=== PATIENT | female | born 1950 | race Caucasian/White ===

== ENCOUNTER 2018-05-08 13:58 | Emergency (ER) | payer MEDICARE, MEDICAID, SELFPAY ==
[2018-05-08 14:32] VITALS: BP 145/85; PULSE 90; RESP 16; TEMP 37; O2SAT 98; BMI 34.9
--- NOTE | 2018-05-08 14:55 | PC.NURSE ---
Refusing lab draw at this time
--- NOTE | 2018-05-08 15:35 | ED.NAVMDI ---
HPI - Nausea/Vomiting/Diarrhea <LILIAN Cleaning - Last Filed: 05/08/18 21:30> General Chief complaint: Nausea/Vomiting/Diarrhea Stated complaint: Extreme diahrea, vomiting Time Seen by Provider: 05/08/18 15:35 Source: patient Mode of arrival: ambulatory Limitations: no limitations History of Present Illness HPI Narrative: 67-year-old female with history of arthritis is an everyday smoker here for complaint of having nausea vomiting and diarrhea over the past couple of days. She denies any fevers or chills. She thinks that she may have gotten her symptoms from eating a burroito a few days ago. she denies having any fevers or chills. Last emesis was earlier this morning. She has been tolerating p.o. fluids since that timeframe. Patient did not want any laboratory workup today and would just like medication for the nausea and vomiting. She denies any abdominal pain. She denies any flank pain. No urinary symptoms. Related Data Home Medications Medication Instructions Recorded Confirmed Cane: Single Point Adjustable 05/08/18 05/08/18 Previous Rx's Medication Instructions Recorded ondansetron 4 mg PO TID PRN #9 tab-cap 05/08/18 Allergies Allergy/AdvReac Type Severity Reaction Status Date / Time No Known Drug Allergies Allergy Verified 05/08/18 14:32 Review of Systems <LILIAN Cleaning - Last Filed: 05/08/18 21:30> Constitutional Denies chills, Denies fever(s), Denies lethargy and Denies weakness Eyes Denies change in vision, Denies eye discharge, Denies irritation and Denies loss of vision ENT Ears, Nose, Mouth, and Throat: Denies change in voice, Denies neck pain and Denies sore throat Cardiovascular Denies chest pain, Denies irregular heart rhythm, Denies lightheadedness, Denies palpitations, Denies dyspnea, Denies dyspnea on exertion and Denies orthopnea Respiratory Denies cough, Denies dyspnea, Denies dyspnea on exertion and Denies wheezing Gastrointestinal Gastrointestinal: Reports abdominal pain and Reports diarrhea Genitourinary Denies hematuria, Denies flank pain, Denies urinary incontinence and Denies urinary urgency Musculoskeletal Denies neck pain Integumentary/Breasts Denies pruritus, Denies erythema, Denies rash and Denies wounds Neurologic Denies confusion, Denies loss of vision and Denies weakness Psychiatric Denies anxiety, Denies confusion, Denies depression, Denies homicidal ideation and Denies suicidal ideation Endocrine Denies palpitations Hematologic/Lymphatic Denies easy bruising Allergic/Immunologic Denies wheezing Exam <LILIAN Cleaning - Last Filed: 05/08/18 21:30> Initial Vital Signs Initial Vital Signs: Vital Signs Temperature 98.6 F 05/08/18 14:32 Pulse Rate 90 05/08/18 14:32 Respiratory Rate 16 05/08/18 14:32 Blood Pressure 145/85 H 05/08/18 14:32 Pulse Oximetry 98 05/08/18 14:32 Const General: cooperative and well developed Nutritional Appearance: well nourished Orientation: alert, awake, oriented x3 and not confused HENMT Mouth: oral mucosae normal, oropharynx normal and moist mucous membranes Eyes Conjunctivae: conjunctivae normal Sclera: sclerae normal Pupils: PERRL EOM: EOM intact bilaterally Resp Effort & Inspection: normal respiratory effort, able to speak in complete sentences, no respiratory distress and no use of accessory muscles Auscultation: clear to auscultation bilaterally, no rales, no rhonchi and no wheezes Cardio Rate: regular rate Rhythm: regular rhythm Heart Sounds: no click, no gallops, no murmurs and no rubs Pulses: normal peripheral pulses GI Inspection: non-distended Palpation: soft, no hepatosplenomegaly, No guarding, No pulsatile mass and No tender Auscultation: normal bowel sounds General: No CVA tenderness Neuro General: alert, oriented x3, gait normal and no focal motor deficits Speech: speech normal <Nicky Glaser DO - Last Filed: 05/09/18 07:22> Initial Vital Signs Initial Vital Signs: Vital Signs Temperature 98.6 F 05/08/18 14:32 Pulse Rate 90 05/08/18 14:32 Respiratory Rate 16 05/08/18 14:32 Blood Pressure 145/85 H 05/08/18 14:32 Pulse Oximetry 98 05/08/18 14:32 Course <LILIAN Cleaning - Last Filed: 05/08/18 21:30> Orders Ordered: Discontinued Medications Ondansetron HCl (Zofran Odt) 4 mg PO NOW ONE Stop: 05/08/18 16:17 Last Admin: 05/08/18 16:27 Dose: 4 mg Vital Signs - 8 hr 05/08/18 14:32 05/08/18 16:36 Temperature 98.6 F Pulse Rate 90 74 Respiratory Rate 16 18 Blood Pressure 145/85 H Blood Pressure [Left Arm] 154/81 H Pulse Oximetry 98 98 <Nicky Glaser DO - Last Filed: 05/09/18 07:22> Orders Ordered: Discontinued Medications Ondansetron HCl (Zofran Odt) 4 mg PO NOW ONE Stop: 05/08/18 16:17 Last Admin: 05/08/18 16:27 Dose: 4 mg Vital Signs - 8 hr 05/08/18 14:32 05/08/18 16:36 Temperature 98.6 F Pulse Rate 90 74 Respiratory Rate 16 18 Blood Pressure 145/85 H Blood Pressure [Left Arm] 154/81 H Pulse Oximetry 98 98 MDM - Nausea/Vomiting/Diarrhea <LILIAN Cleaning - Last Filed: 05/08/18 21:30> Lab Data Lab Results 05/08/18 Range/Units 16:18 Urine RBC 1-5/hpf (0-5/HPF) Urine WBC 5-10/hpf H (0-5/HPF) Ur Squamous Epith Cells 0-1 /hpf Amorphous Sediment 1+ Urine Bacteria Few (2-10) H (None) Urine Mucus 3+ H (Negative) Ur Culture Indicated? Specimen cultured Micro UA Comment Not Reportable Urine Dip Bedside Urine Glucose Negative Bedside Urine Bilirubin ++ 2 Bedside Urine Ketone ++ 40 Urine Specific [place] 1.030 Bedside Urine Occult Blood + Bedside Urine pH 6.0 Bedside Urine Protein + 30 Bedside Urine Urobilinogen +/- 1mg Bedside Urine Nitrite - Negative Bedside Urine Leukocytes + 70 Esterase MDM Narrative Medical decision making narrative: Patient not wanting have any laboratory results or imaging done at this point she was just requesting treatment for her symptoms. She was given Zofran ODT which helped her nausea. [id number] Imodium for her diarrhea. Urinalysis showed positive for WBCs and leuko esterase. Patient denies any urinary symptoms such as dysuria or increased urinary frequency. Will hold off treatment at this point. She is treated for a viral illness. Plenty of fluids and rest. [id number] Tylenol as needed for any discomfort. Follow up with primary care provider in the next few days for re-evaluation. For any worsening symptoms return to the emergency room. <Nicky Glaser DO - Last Filed: 05/09/18 07:22> Lab Data Lab Results 05/08/18 Range/Units 16:18 Urine RBC 1-5/hpf (0-5/HPF) Urine WBC 5-10/hpf H (0-5/HPF) Ur Squamous Epith Cells 0-1 /hpf Amorphous Sediment 1+ Urine Bacteria Few (2-10) H (None) Urine Mucus 3+ H (Negative) Ur Culture Indicated? Specimen cultured Micro UA Comment Not Reportable Urine Dip Bedside Urine Glucose Negative Bedside Urine Bilirubin ++ 2 Bedside Urine Ketone ++ 40 Urine Specific [place] 1.030 Bedside Urine Occult Blood + Bedside Urine pH 6.0 Bedside Urine Protein + 30 Bedside Urine Urobilinogen +/- 1mg Bedside Urine Nitrite - Negative Bedside Urine Leukocytes + 70 Esterase Discharge Plan Departure Patient Disposition: Home Clinical Impression: Nausea vomiting and diarrhea Discharge Date/Time: 05/08/18 17:15 Interventions: ED Discharge Assessment Last Done: 05/08/18 17:33 Instructions: DI for Viral Gastroenteritis -- Adult Activity Restrictions/Additional Instructions: signs and symptoms presents as a viral illness. You are prescribed Zofran to help with the nausea and vomiting use as directed. Plenty of fluids and rest. [id number] Tylenol as needed for any discomfort. Use [id number] Imodium as needed for diarrhea. Follow up with her primary care provider in the next few days for re-evaluation. For any worsening symptoms return to the emergency room. Prescriptions: New ondansetron 4 mg tablet,disintegrating 4 mg PO TID PRN (Reason: nausea and vomiting) Qty: 9 RF: 0 No Action Cane: Single Point Adjustable RF: 0 Referrals: [facility] [Provider Group] <Nicky Glaser DO - Last Filed: 05/09/18 07:22> Cosign ED Attending Cosleonature Attestation: I was immediately available in the department for consultation. This documentation has been reviewed and I agree with assessment and plan. Supervised by Nicky Glaser DO
--- NOTE | 2018-05-08 15:57 | PC.NURSE ---
pt is refusing IV, labs. 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 aware.
[2018-05-08] MEDS: ONDANSETRON 4 MG ODT PO (16:27)
[2018-05-08 16:36] VITALS: BP 154/81; PULSE 74; RESP 18; O2SAT 98
[2018-05-08 16:40] LABS: Amorphous Sediment Urine 1+; Bacteria Urine Few (2-10); Mucus Urine 3+ (Negative); RBC Urine 1-5/HPF (0-5/HPF); Squamous Epithelial Cell Urine 0-1 /HPF; WBC Urine 5-10/HPF (0-5/HPF)
[2018-05-08 16:41] LABS: Culture Indicated Urine Specimen Cultured
== END 2018-05-08 17:15 | disposition home or self-care (01) ==
PROVIDERS: Emergency Provider Nurse Practitioner Family
DX: R11.2 Nausea with vomiting, unspecified (principal); R19.7 Diarrhea, unspecified
CPT/HCPCS: 81003; 81015; 87086; 99282; 99283

== ENCOUNTER → 2020-05-30 14:17 | Outpatient (CLI) | payer MEDICARE, MEDICAID, SELFPAY ==
--- NOTE | 2020-05-30 14:41 | DI.RAD.S_ITS ---
PROCEDURE: XR CHEST 2V INDICATIONS: Cough TECHNIQUE: 2 views of the chest were acquired. COMPARISON: None. FINDINGS: Surgical changes and devices: None. Lungs and pleura: Lungs are clear. No pleural effusions or pneumothorax. Mediastinum: Mediastinal contours are normal. Heart size is normal. Bones and chest wall: No suspicious bony abnormalities. Soft tissues appear unremarkable. IMPRESSION: Normal for age, source of current cough symptoms is not seen. Dictated by: Jun Kimball M.D. on 05/30/2020 at 15:09 Approved by: Jun Kimball M.D. on 05/30/2020 at 15:10
[2020-05-30 14:42] LABS: COVID19 -Nasal RAPID POSITIVE (Negative)
== END ==
PROVIDERS: Visit Provider Nurse Practitioner
DX: U07.1 COVID-19 (principal)
CPT/HCPCS: 71046; 87635

== ENCOUNTER 2024-10-31 13:01 | Emergency (ER) | payer SELFPAY ==
[2024-10-31 13:57] VITALS: BP 171/84; PULSE 72; RESP 16; TEMP 37; O2SAT 98; BMI 34.4
--- NOTE | 2024-10-31 14:46 | ED.EAR ---
HPI - Ear Problem <Elsy Bartholomew PA-C - Last Filed: 10/31/24 15:40> General Chief complaint: Ear Stated complaint: EAR PAIN,BLOCKAGE CAN'T HEAR 8 MOS Time Seen by Provider: 10/31/24 14:28 Source: patient Mode of arrival: Ambulatory History of Present Illness HPI Narrative: Ms. Morales is a pleasant 73-year-old female who presents to the emergency department for bilateral ear pain and blockage x8 months. 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 She was seen in the emergency department about 8 months ago and had ear lavage bilaterally for cerumen impactions. She was treated with Augmentin. She returned to the walk-in clinic on 05/05/2024 and was treated with ofloxacin drops for the left ear for otitis externa. Patient also has eczema and dry skin of the external ears. States that she has not been able to follow up with the PCP or ENT due to insurance reasons. Related Data Home Medications Medication Instructions Recorded Confirmed Cane: Single Point Adjustable 05/08/18 06/16/20 Previous Rx's Medication Instructions Recorded ofloxacin 0.3 % ear drops 10 drp EAR-BOTH DAILY 10 days #10 10/31/24 mL Allergies Allergy/AdvReac Type Severity Reaction Status Date / Time No Known Drug Allergies Allergy Verified 05/05/24 17:13 Review of Systems <Elsy Bartholomew PA-C - Last Filed: 10/31/24 15:40> Review of Systems ROS Unobtainable: All systems reviewed & are unremarkable except as noted in HPI and below Patient History <Elsy Bartholomew PA-C - Last Filed: 10/31/24 15:40> Medical History COVID-19 Hx of (Unknown) Psoriasis (2015) Chronic back pain (2015) Herpes (Unknown) Family History Father Respiratory failure Mother Respiratory failure Social History Smoking Status: Never smoker Tobacco: How many years used: 40 alcohol intake: never Smoking Status: Never smoker alcohol intake frequency: holidays/special occasions only Exam <Elsy Bartholomew PA-C - Last Filed: 10/31/24 15:40> Narrative Exam Narrative: GENERAL: 73 year old patient appears stated age. Well-developed patient, in no acute distress. HEAD: Atraumatic. Normocephalic. EYES: No scleral icterus. No injection or drainage. ENT: Right ear canal with dry skin, mild erythema, normal pearly guzmán TM with clear fluid behind it. Left ear canal is erythematous and coated with a whitish fluid obstructing view of TM. No erythema or pain with palpation of bilateral pinna, no mastoid tenderness. NECK: Trachea midline. Cervical ROM intact. CARDIOVASCULAR: Regular rate RESPIRATORY: ?Nonlabored respirations. ?Speaking in clear, full sentences. NEURO: AOx3. ?Clear speech. ?Moves all 4 extremities appropriately. SKIN: No rash or erythema of visible areas Initial Vital Signs Initial Vital Signs: Vital Signs Temperature 98.6 F 10/31/24 13:57 Pulse Rate 72 10/31/24 13:57 Respiratory Rate 16 10/31/24 13:57 Blood Pressure 171/84 H 10/31/24 13:57 Pulse Oximetry 98 10/31/24 13:57 Oxygen Delivery Method Room Air 10/31/24 13:57 <Eduin Vasquez MD - Last Filed: 10/31/24 20:43> Initial Vital Signs Initial Vital Signs: Vital Signs Temperature 98.6 F 10/31/24 13:57 Pulse Rate 72 10/31/24 13:57 Respiratory Rate 16 10/31/24 13:57 Blood Pressure 171/84 H 10/31/24 13:57 Pulse Oximetry 98 10/31/24 13:57 Oxygen Delivery Method Room Air 10/31/24 13:57 Course <Elsy Bartholomew PA-C - Last Filed: 10/31/24 15:40> Orders Ordered: ED Orders 10/31/24 14:53 Wound Culture and Gram Stain Stat 10/31/24 15:00 Consult to COSMETIC CHEMIST - Equipment Service Engineer Stat Discontinued Medications Ofloxacin (Ofloxacin 0.3% Ophth Prepack) 1 bottle MISC DIRECTED ONE Stop: 10/31/24 15:31 Last Admin: 10/31/24 15:45 Dose: 10 drops Documented By: JOSÉ MIGUEL Vital Signs Vital signs: Vital Signs - 8 hr 10/31/24 13:57 Temperature 98.6 F Pulse Rate 72 Respiratory Rate 16 Blood Pressure 171/84 H Pulse Oximetry 98 Oxygen Delivery Method Room Air <Eduin Vasquez MD - Last Filed: 10/31/24 20:43> Orders Ordered: ED Orders 10/31/24 14:53 Wound Culture and Gram Stain Stat 10/31/24 15:00 Consult to COSMETIC CHEMIST - Equipment Service Engineer Stat Discontinued Medications Ofloxacin (Ofloxacin 0.3% Ophth Prepack) 1 bottle MISC DIRECTED ONE Stop: 10/31/24 15:31 Last Admin: 10/31/24 15:45 Dose: 10 drops Documented By: JOSÉ MIGUEL Vital Signs Vital signs: Vital Signs - 8 hr 10/31/24 13:57 Temperature 98.6 F Pulse Rate 72 Respiratory Rate 16 Blood Pressure 171/84 H Pulse Oximetry 98 Oxygen Delivery Method Room Air Medical Decision Making <Elsy Bartholomew PA-C - Last Filed: 10/31/24 15:40> Medical Records Medical records reviewed: Yes I reviewed the patient's medical records. MDM Narrative Medical decision making narrative: 73-year-old female who presents to the emergency department for bilateral ear pain and blockage x8 months. Differential diagnosis includes but is not limited to otitis externa, otitis media, cerumen impaction, etc. On exam patient is in no acute distress, nontoxic appearing. Right TM is visualized and is not infected however there is some dry skin and erythema of the canal. Left ear canal however is erythematous, edematous, covered in a white discharge obstructing view of TM. We will obtain culture of the left ear fluid and try to remove to visualize TM. Curette was used to remove drainage from left ear canal. Patient tolerated the procedure well however she did wish to stop, I am unable to fully visualized left TM therefore we will treat with ofloxacin otic drops 10 drops once daily for 7-10 days, advised follow up with PCP and ENT. Consult to COSMETIC CHEMIST placed to assist patient, they will be unable to see her today but can hopefully message and follow up later. Patient states she will not be able to afford prescription until the 1st of the month therefore she was provided with prepack in the emergency department. Discussed the importance of not putting anything into the ear such as olive oil, Q-tips which she has been previously doing. Recommended avoiding getting water in the ear by using cotton balls. Discussed ED return precautions. She verbalized understanding of all this information is agreeable to the plan. Wound culture sent. She is stable for discharge home. Discharge Plan Departure Patient Disposition: Home Clinical Impression: Chronic otitis externa of left ear Qualifiers: Otitis externa type: unspecified type Qualified Code(s): H60.62 - Unspecified chronic otitis externa, left ear Instructions: How to Instill Ear Drops, DI for Otitis Externa Activity Restrictions/Additional Instructions: Dear Ms. Morales, Thank you for coming to the emergency department. Today your physical exam reveals an infection of the left ear canal. Please only place the prescribed drops in the ear and avoid putting olive oil, Q-tips or anything else in your ears. You may put cotton balls in the external ear to prevent water from getting in the ears while showering. It is very important to follow up with the primary care doctor and an ears Nose Throat doctor for further evaluation. Please follow up with your primary care doctor within the next 2-3 days for ER follow-up. (If you do not have a PCP you can call [phone]. ?to schedule an appointment with an [facility] Primary Care Provider) IF YOU DEVELOP ANY NEW OR WORSENING SYMPTOMS, RETURN TO THE ER! Please read the attached instructions, they highlight more specific treatments and interventions for you at home. Thank you for letting me participate in your care, Elsy Bartholomew PA-C Prescriptions: New ofloxacin 0.3 % drops 10 drp EAR-BOTH DAILY 10 Days Qty: 10 0RF No Action (DME) Cane: Single Point Adjustable Referrals: Afshin Panchal MD [Physician] - (chronic otitis externa) Miscellaneous,DoctorMD [Primary Care Provider] - Stand Alone Forms: Patient Portal/API/Survey ED Sign-out <Eduin Vasquez MD - Last Filed: 10/31/24 20:43> Cosign ED Attending Cosignature Attestation: I was immediately available in the department for consultation. This documentation has been reviewed and I agree with assessment and plan. Supervised by Eduin Vasquez MD
--- NOTE | 2024-10-31 15:14 | CM.SWNOTE ---
ED DIRECTOR HEMATOLOGY Note ED provider discusses patient with DIRECTOR HEMATOLOGY, patient will need assistance with establishing care with PCP and follow up with ENT. ED provider denies needs from DIRECTOR HEMATOLOGY at this time, ED DIRECTOR HEMATOLOGY on duty on next business day to follow up with patient to assist with establishing care via phone call. Lynda Kellogg, ENTRY LEVEL SOFTWARE DEVELOPER
[2024-10-31] MEDS: OFLOXACIN 0.3% OPHTH PREPACK 1 BOTTLE MISC (15:45)
== END 2024-10-31 15:49 | disposition home or self-care (01) ==
PROVIDERS: Emergency Provider Physician Assistant
DX: H60.62 Unspecified chronic otitis externa, left ear (principal)
CPT/HCPCS: 87070; 87075; 87077; 87147; 87186; 87205; 99281; 99282